=== PATIENT | female | born 1950 | race Hispanic/Latino ===

== ENCOUNTER 2017-09-09 11:37 | Emergency (ER) | payer OTHER, MEDICARE ==
[2017-09-09] MEDS ORDERED: KETOROLAC TROMETHAMINE 60 MG/2 ML VIAL ONE (12:07)
[2017-09-09] MEDS ORDERED: DIAZEPAM 5 MG TABLET ONE (12:08)
== END 2017-09-09 13:40 | disposition home or self-care (01) ==
LOC: EDH 11:37
DX: M54.5 Low back pain (principal); G89.29 Other chronic pain; E11.9 Type 2 diabetes mellitus without complications; I10 Essential (primary) hypertension; E78.5 Hyperlipidemia, unspecified; Z98.51 Tubal ligation status
CPT/HCPCS: 96372; 99283; J1885

== ENCOUNTER 2018-04-01 11:41 | Emergency (ER) | payer OTHER, MEDICARE ==
[2018-04-01] MEDS ORDERED: ACETAMINOPHEN 325 MG TAB ONE (13:32)
== END 2018-04-01 15:11 | disposition home or self-care (01) ==
LOC: EDH 11:41
DX: S09.8XXA Other specified injuries of head, initial encounter (principal); S20.219A Contusion of unspecified front wall of thorax, initial encounter; S80.02XA Contusion of left knee, initial encounter; S80.01XA Contusion of right knee, initial encounter; M25.552 Pain in left hip; I10 Essential (primary) hypertension; E78.5 Hyperlipidemia, unspecified; E11.9 Type 2 diabetes mellitus without complications; W18.39XA Other fall on same level, initial encounter; Y93.89 Activity, other specified; Y92.89 Other specified places as the place of occurrence of the external cause; Y99.8 Other external cause status
CPT/HCPCS: 70450; 71045; 73502; 73562

== ENCOUNTER → 2019-01-14 | Outpatient (CLI) | payer OTHER, MEDICARE | END | disposition home or self-care (01) | LOC: RAH 12:40 | PROVIDERS: ATTEND Family Medicine | DX: M47.817 Spondylosis without myelopathy or radiculopathy, lumbosacral region (principal); M47.16 Other spondylosis with myelopathy, lumbar region; M48.07 Spinal stenosis, lumbosacral region; M51.37 Other intervertebral disc degeneration, lumbosacral region | CPT/HCPCS: 72148 ==

== ENCOUNTER 2019-03-18 22:54 | Emergency (ER) | payer OTHER, MEDICARE ==
[2019-03-18 23:26] LABS: EOSINOPHILS % (AUTO) 0.9 % (0.0-8.0); HEMATOCRIT 38.3 % (36-48); LYMPHOCYTES % (AUTO) 34.4 % (21.0-51.0); MEAN CORPUSCULAR HEMOGLOBIN 28.4 pg (27.0-33.0); MEAN CORPUSCULAR HGB CONC 32.7 g/dL (32.0-36.0); MEAN CORPUSCULAR VOLUME 86.9 fL (79-99); MONOCYTES % (AUTO) 7.1 % (3.0-13.0); NEUTROPHILS % (AUTO) 56.6 % (40.0-77.0); PLATELET COUNT (AUTO) 275 K/uL (130-400); RED CELL DISTRIBUTION WIDTH 14.2 % (11.0-15.5); WHITE BLOOD COUNT (AUTO) 14.2 K/uL (4.8-10.8)
[2019-03-18 23:39] LABS: BILIRUBIN,TOTAL 0.3 mg/dL (0.2-1.0); CREATININE 0.9 mg/dL (0.5-1.5); TOTAL PROTEIN, SERUM 6.8 g/dL (6.0-8.3)
[2019-03-18] MEDS ORDERED: SODIUM CHLORIDE 0.9% 1000ML 1,000 ML IV ONE (23:51)
[2019-03-18] MEDS ORDERED: POTASSIUM BICARB/CIT AC 25 MEQ TABLET.EFF ONE (23:51)
[2019-03-19 00:22] LABS: APPEARANCE,URINE CLEAR (CLEAR); BILIRUBIN,URINE SMALL (NEGATIVE); COLOR,URINE YELLOW (YELLOW); GLUCOSE, URINE (UA) NEGATIVE (NEGATIVE); KETONES,URINE 5 mg/dL (NEGATIVE); LEUKOCYTE ESTERASE ,URINE SMALL (NEGATIVE); NITRATE,URINE NEGATIVE (NEGATIVE); OCCULT BLOOD,URINE NEGATIVE (NEGATIVE); PH,URINE 5.5 (5.0-8.0); PROTEIN,URINE TRACE mg/dL (NEGATIVE)
[2019-03-19 00:24] LABS: AMORPHOUS SEDIMENT,UR Moderate /LPF (None Seen); BACTERIA,URINE Few /HPF (None Seen); MUCUS,URINE Moderate LPF (None Seen); RBC,URINE 0-1 /HPF (0-1); SQUAMOUS EPITHELIAL CELL,UR Moderate /HPF (0-2)
[2019-03-19] MEDS ORDERED: CEFTRIAXONE SODIUM 1 GM ONE (00:43)
== END 2019-03-19 01:23 | disposition home or self-care (01) ==
LOC: EDH 22:54
DX: N39.0 Urinary tract infection, site not specified (principal); E87.6 Hypokalemia; F41.9 Anxiety disorder, unspecified; I10 Essential (primary) hypertension; E11.9 Type 2 diabetes mellitus without complications; E78.5 Hyperlipidemia, unspecified
CPT/HCPCS: 36415; 80053; 81001; 85025; 87088; 96374; 99284; J0696; J7030

== ENCOUNTER 2020-02-02 09:26 | Emergency (ER) | payer OTHER, MEDICARE ==
[2020-02-02 09:47] LABS: BASOPHILS % (AUTO) 0.2 % (0.0-5.0); EOSINOPHILS % (AUTO) 1.5 % (0.0-8.0); LYMPHOCYTES % (AUTO) 36.8 % (21.0-51.0); MEAN CORPUSCULAR HEMOGLOBIN 28.3 pg (27.0-33.0); MEAN CORPUSCULAR HGB CONC 31.5 g/dL (32.0-36.0); MEAN CORPUSCULAR VOLUME 89.7 fL (79-99); MONOCYTES % (AUTO) 6.2 % (3.0-13.0); NEUTROPHILS % (AUTO) 54.6 % (40.0-77.0); PLATELET COUNT (AUTO) 268 K/uL (130-400); RED BLOOD CELL COUNT(AUTO) 4.46 MIL/uL (4.00-5.50); RED CELL DISTRIBUTION WIDTH 14.7 % (11.0-15.5); WHITE BLOOD COUNT (AUTO) 13.5 K/uL (4.8-10.8)
[2020-02-02 09:56] LABS: CREATININE 0.9 mg/dL (0.5-1.5); POTASSIUM 3.6 mmol/L (3.5-5.1)
[2020-02-02 10:01] LABS: BILIRUBIN,TOTAL 0.4 mg/dL (0.2-1.0); TOTAL PROTEIN, SERUM 6.9 g/dL (6.0-8.3)
[2020-02-02] MEDS ORDERED: ONDANSETRON HCL 4 MG/2 ML VIAL ONE (11:51)
[2020-02-02] MEDS ORDERED: FENTANYL CITRATE PF 50 MCG/1 ML 2ML VIAL ONE (11:52)
== END 2020-02-02 13:21 | disposition home or self-care (01) ==
LOC: EDH 09:26
DX: S22.42XA Multiple fractures of ribs, left side, initial encounter for closed fracture (principal); F41.9 Anxiety disorder, unspecified; E11.9 Type 2 diabetes mellitus without complications; E78.5 Hyperlipidemia, unspecified; I10 Essential (primary) hypertension; W18.39XA Other fall on same level, initial encounter; Y93.01 Activity, walking, marching and hiking; Y92.89 Other specified places as the place of occurrence of the external cause; Y99.8 Other external cause status
CPT/HCPCS: 36415; 70450; 71250; 72125; 74176; 80053; 85025; 93005; 96374; 96375; 99285; J2405; J3010

== ENCOUNTER 2023-06-18 10:29 | Emergency (ER) | payer OTHER, MEDICARE ==
[~2023-06-18] VITALS: Ht 157.5 cm; Wt 107.5 kg
[2023-06-18] MEDS: ONDANSETRON 4MG TABLET PO ONE (11:17)
[2023-06-18] MEDS: MORPHINE 4 MG SYG IM ONE (11:17)
[2023-06-18 14:30] VITALS: BP 158/79; PULSE 88; RESP 18; O2SAT 99
== END 2023-06-18 14:58 | disposition home or self-care (01) ==
LOC: EDH 10:29
DX: M54.50 Low back pain, unspecified (principal); M54.16 Radiculopathy, lumbar region; I10 Essential (primary) hypertension; E11.9 Type 2 diabetes mellitus without complications; E78.00 Pure hypercholesterolemia, unspecified; F41.9 Anxiety disorder, unspecified; F32.A Depression, unspecified; M19.90 Unspecified osteoarthritis, unspecified site; Z98.890 Other specified postprocedural states
CPT/HCPCS: 99285; 72131; 96372; Q0162; J2270; 96374